=== PATIENT | female | born 1945 | race Caucasian/White ===

== ENCOUNTER 2018-06-28 10:37 | Outpatient (CLI) | payer MEDICARE, BC ==
[2018-06-28 12:37] VITALS: BP 111/60
[2018-06-28] MEDS ORDERED: OXYCODONE HCL5 M2 ORAL (12:51)
[2018-06-28] MEDS ORDERED: ACETAMINOPHEN325 M1 ORAL (12:51)
[2018-06-28] MEDS ORDERED: DOCUSATE SODIU100 MG ORAL (12:51)
[2018-06-28] MEDS ORDERED: TYLENOL EXTRA500 MG ORAL (12:51)
[2018-06-28] MEDS ORDERED: MULTIVITAMINS1 EAC2 ORAL (12:51)
[2018-06-28] MEDS ORDERED: COQ-10100 M1 PO (12:51)
[2018-06-28] MEDS ORDERED: AMLODIPINE BESY10 MG ORAL (12:51)
[2018-06-28] MEDS ORDERED: MAGNESIUM CITR296 M1 PO (12:51)
[2018-06-28] MEDS ORDERED: BISACODYL5 MG ORAL (12:51)
[2018-06-28] MEDS ORDERED: ACIDOPHILUS1 EAC7 PO (12:51)
[2018-06-28] MEDS ORDERED: COZAAR50 MG ORAL (12:51)
[2018-06-28] MEDS ORDERED: ZETIA10 MG ORAL (12:51)
[2018-06-28] MEDS ORDERED: PANTOPRAZOLE SO40 MG ORAL (12:51)
[2018-06-28] MEDS ORDERED: VITAMIN D1000 UNI1 ORAL (12:51)
[2018-06-28] MEDS ORDERED: GLYCOLAX225 GM PO (12:51)
[2018-06-28] MEDS ORDERED: CARVEDILOL3.125 MG ORAL (12:51)
[2018-06-28] MEDS ORDERED: ZOFRAN4 M3 ORAL (12:51)
[2018-06-28] MEDS ORDERED: LOVENOX10 M4 SUBQ (12:51)
--- NOTE | 2018-06-28 15:45 | GI Initial Consult Note ---
History of Present Illness General Date patient seen: Jun 28, 2018 Time patient seen: 15:34 Reason for Consultation: GT removal Present Illness HPI 73 year old female patient with history of ICH, left hemiplegia, CHF, , HLD, HTN, ABIGAIL, neuropathy, s/p R cranioplasty 04/21/18 presents today with GT removal. Per patient, and patient cousin, she has been eating and drinking fine for the past few months without any use of the Gtube. Patient has c/o of occasional constipation vs diarrhea. Denies any abdominal pain, N/V/D. Denies any unintentional weight loss or changes in dietary habits. Patient cannot ambulate, uses wheelchair and is a fall risk. Home Meds Reported Medications Magnesium Citrate (MAGNESIUM CITRATE) 296 Ml Solution, 296 ML PO PRN 06/28/18 Polyethylene Glycol 3350 (Glycolax) 119 Gm Powder, 17 GM PO PRN, GM 06/28/18 Bisacodyl* (DULCOLAX*) 5 Mg Tablet.dr, 5 MG ORAL PRN, #10 TAB 0 Refills 06/28/18 Acetaminophen* (TYLENOL EXTRA STRENGTH*) 500 Mg Tablet, 500 MG ORAL Q6H, TAB 0 Refills 06/28/18 Acetaminophen* (ACETAMINOPHEN 325MG TABLET*) 325 Mg Tablet, 650 MG ORAL Q6H PRN for For Pain Level <=5, TAB 06/28/18 Pantoprazole* (PANTOPRAZOLE*) 40 Mg Tablet.dr, 40 MG ORAL DAILY, TAB 06/28/18 Multivitamins* (MULTIVITAMINS*) 1 Each Tablet, 1 TAB ORAL DAILY, TAB 0 Refills 06/28/18 Ondansetron* (ZOFRAN*) 4 Mg Tablet, 4 MG ORAL Q8HR PRN for Nausea & Vomiting, TAB 06/28/18 Cholecalciferol (Vitamin D3)* (VITAMIN D*) 1,000 Unit Tablet, 5000 UNIT ORAL DAILY, #30 TAB 06/28/18 Oxycodone Hcl* (OXYCODONE HCL*) 5 Mg Capsule, 5 MG ORAL DAILY PRN for For Pain, CAP 0 Refills 06/28/18 Losartan Potassium* (COZAAR*) 50 Mg Tablet, 100 MG ORAL DAILY, TAB 06/28/18 Lactobacillus Acidophilus (Acidophilus) 1 Each Tablet, 1 EACH PO TID, TAB 06/28/18 Ezetimibe (ZETIA*) 10 Mg Tablet, 10 MG ORAL BEDTIME, TAB 06/28/18 Enoxaparin* (LOVENOX*) 40 Mg/0.4 Ml Inj, 40 MG SUBQ QHS 06/28/18 Docusate Sodium* (DOCUSATE SODIUM*) 100 Mg Capsule, 100 MG ORAL TWICE A DAY, CAP 06/28/18 Ubidecarenone (COQ-10) 100 Mg Capsule, 200 MG PO BID, CAP 06/28/18 Carvedilol* (CARVEDILOL*) 3.125 Mg Tablet, 3.125 MG ORAL EVERY 12 HOURS, TAB 06/28/18 Amlodipine Besylate* (AMLODIPINE BESYLATE*) 10 Mg Tablet, 10 MG ORAL DAILY, TAB 06/28/18 Med list reviewed/reconciled: Yes Allergies: Coded Allergies: ASPARTAME (Verified Allergy, Unknown, 06/28/18) ATORVASTATIN (Verified Allergy, Unknown, 06/28/18) HYDROCHLOROTHIAZIDE (Verified Allergy, Unknown, 06/28/18) LACTOSE (Verified Allergy, Unknown, 06/28/18) LISINOPRIL (Verified Allergy, Unknown, 06/28/18) ROSUVASTATIN (Verified Allergy, Unknown, 06/28/18) SIMVASTATIN (Verified Allergy, Unknown, 06/28/18) Patient History History Provided By: Patient PMH Narrative See HPI. Past Surgical History: See HPI. Pertinent Family History: none Social History: Denies: smoking, alcohol use, drug use, other Review of Systems All Other Systems: negative except mentioned in HPI Physical Exam Vital Signs Date Time Temp Pulse Resp B/P (MAP) Pulse Ox O2 Delivery O2 Flow Rate FiO2 06/28/18 12:37 98.4 111/60 93 98.4 Sp02 EP Interpretation: reviewed, normal General Appearance: well appearing, no apparent distress, alert Head: normocephalic EENT: PERRL/EOMI, normal ENT inspection Neck: supple Respiratory: normal breath sounds, no respiratory distress Cardiovascular: normal rate Gastrointestinal: normal inspection, non tender, soft, normal bowel sounds, non -distended, gt - GT site present Rectal: deferred Genitourinary: no CVA tenderness Musculoskeletal: other - Left sided weakness Neurologic: normal inspection, alert, oriented x3, responsive Psychiatric: normal inspection, judgement/insight normal, memory normal Skin: normal inspection, normal color, no rash, warm/dry, palpation normal, well hydrated Lymphatic: normal inspection, no adenopathy GI: Plan Problems: (1) PEG (percutaneous endoscopic gastrostomy) adjustment/replacement/removal Plan GT site removed with no complications. - apply pressure dressing x 24 hours. - no shower x 24 hours. RTC prn Seen with Dr. Ho. Thank you for this patient referral. The patient was seen and examined at bedside and all new and available data was reviewed in the patients chart. I agree with the above findings, impression and plan. (Patient seen earlier today. Signature stamp does not reflect patient encounter time.). - MD Rebeca [facility] Jun 28, 2018 15:45
== END 2018-06-28 11:07 | disposition home or self-care (01) ==
LOC: PAN 10:37
DX: Z43.1 Encounter for attention to gastrostomy (principal); I11.0 Hypertensive heart disease with heart failure; G47.33 Obstructive sleep apnea (adult) (pediatric); G81.94 Hemiplegia, unspecified affecting left nondominant side; E78.5 Hyperlipidemia, unspecified; G62.9 Polyneuropathy, unspecified; Z88.8 Allergy status to other drugs, medicaments and biological substances
CPT/HCPCS: 99202